=== PATIENT | female | born 1965 | race Caucasian/White ===

== ENCOUNTER → 2017-10-10 | Outpatient (CLI) | payer OTHER | END | disposition home or self-care (01) | LOC: KCIC MAMMO 08:52 | DX: Z12.31 Encounter for screening mammogram for malignant neoplasm of breast (principal) | CPT/HCPCS: 77067 ==

== ENCOUNTER → 2019-01-29 | Outpatient (CLI) | payer OTHER ==
[2015-12-25 16:00] VITALS: BP 132/68
[~2019-01-29] MED LIST: CYCL10TA2 PO; DICL50TA4 PO; HYDR-2678 PO; TRAM50TA PO
--- NOTE | 2019-01-29 17:54 | KCIC ---
MR of the left knee HISTORY: Left knee pain. Medial joint pain. Positive Jorden's. TECHNIQUE: Routine multiplanar sequences are obtained. Note that due to size, the larger flex coil had to be used. FINDINGS: Signal within the posterior horn the medial meniscus violating the inferior surface, compatible with a small tear. Severe degenerative tear of the lateral meniscus. Anterior and posterior cruciate ligaments are intact. Medial collateral ligament intact. Iliotibial band unremarkable. Fibular collateral ligament, biceps femoris tendon and popliteus tendon are intact. The extensor mechanism is intact. Small joint effusion. Severe cartilage loss at the medial joint compartment with subchondral bone exposure. Milder degenerative changes at the lateral and patellofemoral joint compartments. There is no evidence of aggressive bone destruction. No acute fracture. Trace Mast's cyst. Mild anterior subcutaneous edema. Question tiny loose body at the posterior medial joint of the knee. IMPRESSION: 1. Medial meniscal tear. 2. Extensive lateral meniscal tear. 3. Primary osteoarthritis, particularly severe at the lateral compartment. Possible tiny posterior loose body. Electronically signed by: Diego Schafer MD (01/29/2019 5:51 PM) [facility]
== END | disposition home or self-care (01) ==
LOC: KCIC MRI 14:23
PROVIDERS: ATTEND Orthopaedic Surgery
DX: S83.282A Other tear of lateral meniscus, current injury, left knee, initial encounter (principal); S83.242A Other tear of medial meniscus, current injury, left knee, initial encounter; M17.12 Unilateral primary osteoarthritis, left knee; M25.462 Effusion, left knee; M71.22 Synovial cyst of popliteal space [Baker], left knee; X58.XXXA Exposure to other specified factors, initial encounter; Y93.89 Activity, other specified; Y92.89 Other specified places as the place of occurrence of the external cause; Y99.8 Other external cause status
CPT/HCPCS: 73721

== ENCOUNTER 2019-03-31 09:54 | Day surgery (SDC) | payer OTHER ==
[~2019-03-31] VITALS: Ht 157.5 cm; Wt 144.2 kg
[~2019-03-31 09:54] MED LIST changes: +HYDROmorphone 2 MG/ML VIAL IV PRN; +IV RINGERS,LACTATED 1000ML 1,000 ML IV SCH; +MORPHINE SULFATE 2 MG/ML VIAL. IV PRN; +ONDANSETRON PF 4 MG/2 ML VIAL. IV PRN; +PROCHLORPERAZINE 10 MG/2 ML VIAL. IV PRN; +ceFAZolin SODIUM 3 GM in IV DEXTROSE 5% 100ML 100 ML IV PRN; +fentaNYL PF VIAL 100 MCG/2 ML VIAL IV PRN
[2019-03-31] MEDS ORDERED: LISI-334 PO (10:20)
[2019-03-31] MEDS ORDERED: MELO15TA23 PO (10:20)
[2019-03-31] MEDS ORDERED: ATOR20TA PO (10:20)
[2019-03-31] MEDS ORDERED: BUPIVACAINE MPF 0.5% 30 ML VIAL. ONE ×2 (11:52→12:37)
[2019-03-31] MEDS ORDERED: BUPIVAC MPF-EPI 0.5%-1:200000 30 ML VIAL. ONE (12:09)
[2019-03-31] MEDS ORDERED: PROPOFOL 20 ML IV ONE (13:27)
[2019-03-31] MEDS ORDERED: fentaNYL PF VIAL 100 MCG/2 ML VIAL ONE (13:27)
[2019-03-31] MEDS ORDERED: ONDANSETRON PF 4 MG/2 ML VIAL. ONE (13:27)
[2019-03-31] MEDS ORDERED: LIDOCAINE 2% PF 5 ML VIAL. ONE (13:27)
[2019-03-31] MEDS ORDERED: DEXAMETHASONE SOD PHOS 4 MG/ML VIAL ONE (13:27)
[2019-03-31] MEDS ORDERED: HYDR-3165 PO (13:30)
[2019-03-31] MEDS ORDERED: MIDAZOLAM HCL/PF 2 MG/2 ML VIAL. ONE (13:36)
[2019-03-31] MEDS ORDERED: KETOROLAC 30 MG/ML INJ FOR OR. INJ ONE (13:59)
[2019-03-31] MEDS ORDERED: SEVOFLURANE 31 TO 60 MINUTES. IH ONE (14:00)
--- NOTE | 2019-03-31 14:06 | DISCH ---
DISCHARGE INSTRUCTIONS Condition on Discharge Condition on Discharge: Stable Activity After Discharge Activity Instructions for Disc: Other, see below (may increase activities s lowly as tolerated) Weight Bearing Status after Di: As tolerated Diet after Discharge Diet after Discharge: Diabetic No Calorie Level Wound Incision Care Wound/Incision Care: Change dressing (remove dressing in 2 days may then shower no soaking until sutures removed) Contacting the after DC Call your doctor for: Concerns you may have Follow-Up Follow up with: Dr. Ascencio 1 week DONALD ASCENCIO MD Mar 31, 2019 14:06
[2019-03-31] MEDS ORDERED: HYDROcodone/APAP 7.5/325MG 1 TAB TABLET PO ONE (14:15)
[2019-03-31 14:36] VITALS: BP 105/45
--- NOTE | 2019-03-31 15:41 | PDOC4 ---
Operative Note Operative Note Date of surgery: 03/31/2019 Preoperative diagnosis: Medial and lateral meniscal tears left knee Postoperative diagnosis: Same Operative procedure: Left knee arthroscopy partial medial and lateral meniscectomies Surgeon: Sonu Anesthesia: Gen. Estimated blood loss: 5 mL Complications: None Operative indications: Please see my preoperative clinic note for detailed operative indications and indicates that patient is a 53-year-old female with pain swelling and mechanical symptoms of the left knee particularly with twisting pivoting type activities and MRI confirmed clinical suspicion of an ischial tears. I had gone over with her possibility of operative and ongoing nonoperative treatments the rationale for operative treatment of the meniscal tear reviewing the structure and function with her the possibility of continued pain particularly because I cannot undo any degenerative type issues along with the knee arthroscopy but only the mechanical-type issues associated with the meniscus tear or loose bodies etc. all her questions were answered she wishes to proceed with surgical evaluation and treatment. Operative text: Patient was identified procedure verified patient placed in the supine position on the operating table. After adequate amounts of general anesthesia were administered the left lower extremity was prepped and draped in standard sterile fashion with a thigh tourniquet. After timeout was performed patient procedure identified and verified, the left lower extremity was exsanguinated by Esmarch bandage tourniquet inflated to 350 mmHg a lateral portal was established a medial portal established using spinal needle localization and the knee joint was systematically examined. She did have some grade 2-3 chondromalacia of the patellofemoral joint but no instability and good tracking was noted. Likewise had some grade 2-3 chondromalacia in the medial compartment of the knee and a displaceable tear posterior horn of medial meniscus which was trimmed back to stable tissue using arthroscopic punch and shaver. ACL was probed and found to be intact she had multiple loose cart ilaginous bodies in both the medial and lateral compartment which were evacuated with arthroscopic shaver and she had complex tearing throughout the body posterior and anterior horns of the lateral meniscus which were trimmed back to stable tissue with the arthroscopic punch and shaver. All cartilage fragments were removed with arthroscopic shaver the knee was again toured to ensure no loose bodies remained and was then drained of arthroscopic fluid portals closed with nylon suture injection of the portal in fat pad area with 30 mL of half percent plain Marcaine sterile dressings were applied toes were noted be warm pink find deflation of tourniquet patient was returned recovery room in stable condition having tolerated procedure well DONALD BAGLEY MD Mar 31, 2019 15:41
== END 2019-03-31 15:15 | disposition home or self-care (01) ==
LOC: SURG 09:54
PROVIDERS: ATTEND Orthopaedic Surgery
DX: S83.282A Other tear of lateral meniscus, current injury, left knee, initial encounter (principal); S83.242A Other tear of medial meniscus, current injury, left knee, initial encounter; M94.262 Chondromalacia, left knee; E11.9 Type 2 diabetes mellitus without complications; I10 Essential (primary) hypertension; Z90.49 Acquired absence of other specified parts of digestive tract; Z98.890 Other specified postprocedural states; Z88.1 Allergy status to other antibiotic agents; Z79.84 Long term (current) use of oral hypoglycemic drugs; Z79.899 Other long term (current) drug therapy; X58.XXXA Exposure to other specified factors, initial encounter; Y93.89 Activity, other specified; Y92.89 Other specified places as the place of occurrence of the external cause; Y99.8 Other external cause status
CPT/HCPCS: 29880; 82962; A7015; C1782; J1100; J1885; J2001; J2250; J2405; J2704; J3010; J3490

== ENCOUNTER → 2019-07-09 | Outpatient (CLI) | payer OTHER ==
[~2019-07-09] MED LIST changes: +ATOR20TA PO; +HYDR-3165 PO; -HYDROmorphone 2 MG/ML VIAL IV PRN; -IV RINGERS,LACTATED 1000ML 1,000 ML IV SCH; +LISI-334 PO; +MELO15TA23 PO; -MORPHINE SULFATE 2 MG/ML VIAL. IV PRN; -ONDANSETRON PF 4 MG/2 ML VIAL. IV PRN; -PROCHLORPERAZINE 10 MG/2 ML VIAL. IV PRN; -ceFAZolin SODIUM 3 GM in IV DEXTROSE 5% 100ML 100 ML IV PRN; -fentaNYL PF VIAL 100 MCG/2 ML VIAL IV PRN
--- NOTE | 2019-07-09 15:27 | KCIC ---
Bone densitometry 07/09/2019 1:30 PM Indication: Screening exam Comparison Study: None available. Discussion: Bone Densitometry was performed with dual photon absorption of the lumbar spine and proximal left hip Lumbar Spine: Bone average density is 0.928g/cm2 for L1-L4. T-Score is -1.1. Left proximal femur:: Bone average density is 0.853g/cm2. T-Score is -0.7. IMPRESSION: Osteopenia. Note: Definitions established by the World Health Organization: Normal: T-score is -1.0 or above. Osteopenia: T-score is between -1.0 and -2.5. Osteoporosis: T-score is -2.5 or below. Electronically signed by: Dax Valencia MD (07/09/2019 3:24 PM) [id number]
--- NOTE | 2019-07-11 08:27 | KCIC ---
BILATERAL SCREENING MAMMOGRAM History: Routine screening. Comparison: Bilateral mammogram October 10, 2017. Technique: Routine bilateral digital mammogram views were obtained. Findings: Breast Tissue Density B : There are scattered areas of fibroglandular density. There are no dominant masses, suspicious microcalcifications, or architectural distortion. IMPRESSION: No mammographic evidence of malignancy. Recommend routine screening. BI-RADS category 1: Negative. The images were reviewed with computer aided detection. Patient information is entered into the reminder system with a target due date for the next screening mammogram. Mammography is the most sensitive method for finding small breast cancers, but it does not detect them all and is not a substitute for careful clinical examination. A negative mammogram does not negate a clinically suspicious finding and should not result in delay in biopsying a clinically suspicious abnormality. "Our facility is accredited by the [employer] Mammography Program." Electronically signed by: Sarath Lal MD (07/11/2019 8:24 AM) [facility]
== END | disposition home or self-care (01) ==
LOC: KCIC DEXA 13:26
PROVIDERS: ATTEND Nurse Practitioner Family
DX: Z12.31 Encounter for screening mammogram for malignant neoplasm of breast (principal); M85.88 Other specified disorders of bone density and structure, other site
CPT/HCPCS: 77067; 77080

== ENCOUNTER 2019-09-26 13:26 | Emergency (ER) | payer OTHER ==
[~2019-09-26] VITALS: Ht 154.9 cm; Wt 145.6 kg
--- NOTE | 2019-09-26 13:43 | PHYS DOC ---
Past Medical History Past Medical History: Diabetes-Type II, High Cholesterol, Hypertension, Other Additional Past Medical Histor: chronic back pain. (CODEY HARVEY APRN) Past Surgical History: Cholecystectomy, (CODEY HARVEY APRN) Alcohol Use: None Drug Use: None (CODEY HARVEY APRN) Adult General Chief Complaint Chief Complaint: VAGINAL BLEEDING [facility] HPI Patient is a 54 year old female who presents with vaginal bleeding this her last night. Patient states she was having some vaginal spotting last night. The patient states when she woke up today she was having more heavy vaginal bleeding, that did slow down and turn into vaginal spotting. She states that since September 10 she's been feeling off and having a loss of appetite. She's b een eating but not as much as she has a past. Denies any pain at this time. (CODEY HARVEY APRN) Review of Systems Review of Systems Constitutional: Denies fever or chills [] Eyes: Denies change in visual acuity, redness, or eye pain [] HENT: Denies nasal congestion or sore throat [] Respiratory: Denies cough or shortness of breath [] Cardiovascular: No additional information not addressed in HPI [] GI: Denies abdominal pain, nausea, vomiting, bloody stools or diarrhea [] : Reports vaginal bleeding. Denies dysuria or hematuria [] Musculoskeletal: Denies back pain or joint pain [] Integument: Denies rash or skin lesions [] Neurologic: Denies headache, focal weakness or sensory changes [] Endocrine: Denies polyuria or polydipsia [] Complete systems were reviewed and found to be within normal limits, except as documented in this note. (CODEY HARVEY APRN) Allergies Allergies Allergies Coded Allergies Type Severity Reaction Last Updated Verified Sulfa (Sulfonamide Antibiotics) Allergy Intermediate Hives 09/29/19 Yes (CODEY BOBO DO) Physical Exam Physical Exam Constitutional: Well developed, well nourished, no acute distress, non-toxic appearance. [] HENT: Normocephalic, atraumatic, bilateral external ears normal, oropharynx moist, no oral exudates, nose normal. [] Eyes: PERRLA, EOMI, conjunctiva normal, no discharge. [] Lungs & Thorax: Bilateral breath sounds clear to auscultation [] Abdomen: Bowel sounds normal, soft, no tenderness, no masses, no pulsatile ma sses. [] Skin: Warm, dry, no erythema, no rash. [] Neurologic: Alert and oriented X 3, normal motor function, normal sensory function, no focal deficits noted. [] Psychologic: Affect normal, judgement normal, mood normal. [] (CODEY HARVEY APRN) Current Patient Data Vital Signs Vital Signs Date Time Temp Pulse Resp B/P (MAP) Pulse Ox O2 Delivery O2 Flow Rate FiO2 09/26/19 16:25 67 16 102/57 (72) 97 Room Air 09/26/19 13:35 97.9 97.9 (BOBO,CODEY R DO) Lab Values Laboratory Tests Test 09/26/19 13:50 White Blood Count 8.3 x10^3/uL (4.0-11.0) Red Blood Count 4.33 x10^6/uL (3.50-5.40) Hemoglobin 12.2 g/dL (12.0-15.5) Hematocrit 37.9 % (36.0-47.0) Mean Corpuscular Volume 88 fL (79-100) Mean Corpuscular Hemoglobin 28 pg (25-35) Mean Corpuscular Hemoglobin Concent 32 g/dL (31-37) Red Cell Distribution Width 15.1 % (11.5-14.5) H Platelet Count 229 x10^3/uL (140-400) Neutrophils (%) (Auto) 37 % (31-73) Lymphocytes (%) (Auto) 54 % (24-48) H Monocytes (%) (Auto) 7 % (0-9) Eosinophils (%) (Auto) 1 % (0-3) Basophils (%) (Auto) 1 % (0-3) Neutrophils # (Auto) 3.1 x10^3/uL (1.8-7.7) Lymphocytes # (Auto) 4.5 x10^3/uL (1.0-4.8) Monocytes # (Auto) 0.6 x10^3/uL (0.0-1.1) Eosinophils # (Auto) 0.1 x10^3/uL (0.0-0.7) Basophils # (Auto) 0.0 x10^3/uL (0.0-0.2) Prothrombin Time 12.8 SEC (11.7-14.0) Prothrombin Time INR 1.0 (0.8-1.1) Activated Partial Thromboplast Time 29 SEC (24-38) Sodium Level 140 mmol/L (136-145) Potassium Level 4.3 mmol/L (3.5-5.1) Chloride Level 106 mmol/L (98-107) Carbon Dioxide Level 27 mmol/L (21-32) Anion Gap 7 (6-14) Blood Urea Nitrogen 15 mg/dL (7-20) Creatinine 1.1 mg/dL (0.6-1.0) H Estimated GFR (Cockcroft-Gault) 51.8 BUN/Creatinine Ratio 14 (6-20) Glucose Level 91 mg/dL (70-99) Calcium Level 8.3 mg/dL (8.5-10.1) L Total Bilirubin 0.3 mg/dL (0.2-1.0) Aspartate Amino Transferase (AST) 30 U/L (15-37) Alanine Aminotransferase (ALT) 46 U/L (14-59) Alkaline Phosphatase 108 U/L (46-116) Total Protein 6.6 g/dL (6.4-8.2) Albumin 2.9 g/dL (3.4-5.0) L Albumin/Globulin Ratio 0.8 (1.0-1.7) L Laboratory Tests 09/26/19 13:50 Laboratory Tests 09/26/19 13:50 (CODEY BOBO DO) Lab Values Laboratory Tests Test 09/26/19 13:50 White Blood Count 8.3 x10^3/uL (4.0-11.0) Red Blood Count 4.33 x10^6/uL (3.50-5.40) Hemoglobin 12.2 g/dL (12.0-15.5) Hematocrit 37.9 % (36.0-47.0) Mean Corpuscular Volume 88 fL (79-100) Mean Corpuscular Hemoglobin 28 pg (25-35) Mean Corpuscular Hemoglobin Concent 32 g/dL (31-37) Red Cell Distribution Width 15.1 % (11.5-14.5) H Platelet Count 229 x10^3/uL (140-400) Neutrophils (%) (Auto) 37 % (31-73) Lymphocytes (%) (Auto) 54 % (24-48) H Monocytes (%) (Auto) 7 % (0-9) Eosinophils (%) (Auto) 1 % (0-3) Basophils (%) (Auto) 1 % (0-3) Neutrophils # (Auto) 3.1 x10^3/uL (1.8-7.7) Lymphocytes # (Auto) 4.5 x10^3/uL (1.0-4.8) Monocytes # (Auto) 0.6 x10^3/uL (0.0-1.1) Eosinophils # (Auto) 0.1 x10^3/uL (0.0-0.7) Basophils # (Auto) 0.0 x10^3/uL (0.0-0.2) Prothrombin Time 12.8 SEC (11.7-14.0) Prothrombin Time INR 1.0 (0.8-1.1) Activated Partial Thromboplast Time 29 SEC (24-38) Sodium Level 140 mmol/L (136-145) Potassium Level 4.3 mmol/L (3.5-5.1) Chloride Level 106 mmol/L (98-107) Carbon Dioxide Level 27 mmol/L (21-32) Anion Gap 7 (6-14) Blood Urea Nitrogen 15 mg/dL (7-20) Creatinine 1.1 mg/dL (0.6-1.0) H Estimated GFR (Cockcroft-Gault) 51.8 BUN/Creatinine Ratio 14 (6-20) Glucose Level 91 mg/dL (70-99) Calcium Level 8.3 mg/dL (8.5-10.1) L Total Bilirubin 0.3 mg/dL (0.2-1.0) Aspartate Amino Transferase (AST) 30 U/L (15-37) Alanine Aminotransferase (ALT) 46 U/L (14-59) Alkaline Phosphatase 108 U/L (46-116) Total Protein 6.6 g/dL (6.4-8.2) Albumin 2.9 g/dL (3.4-5.0) L Albumin/Globulin Ratio 0.8 (1.0-1.7) L Laboratory Tests 09/26/19 13:50 Laboratory Tests 09/26/19 13:50 (CODEY HARVEY APRN) EKG EKG [] (CODEY HARVEY APRN) Radiology/Procedures Radiology/Procedures [facility] [address] [place] [address] IMAGING REPORT Signed PATIENT: RAJANI VIDALES ACCOUNT: [id number] : 1965 LOCATION: ER AGE: 54 SEX: F EXAM STATUS: REG ER ORD. PHYSICIAN: CODEY HARVEY APRN REASON: Post Menopausal Bleeding; Heavy vaginal bleeding PROCEDURE: PELVIS W/TV EXAM: Pelvic sonogram. HISTORY: Postmenopausal bleeding. TECHNIQUE: Transabdominal and transvaginal sonographic imaging of the pelvis was performed. COMPARISON: None. FINDINGS: The exam is limited due to body habitus. The uterus measures 8.0 x 3.8 x 3.4 cm. The endometrial stripe measures 10 mm in maximum thickness. The ovaries are obscured. There is no pelvic free fluid. There is a nabothian cyst within the cervix measuring 8 mm. IMPRESSION: 1. Limited exam due to body habitus. The ovaries are not seen. 2. Thickened endometrial stripe for the reported postmenopausal status the patient, measuring 10 mm. In the setting of postmenopausal bleeding, tissue sampling is recommended. Electronically signed by: Nancy Moura MD (09/26/2019 3:52 PM) [facility] DICTATED and SIGNED BY: NANCY MOURA MD DATE: 09/26/19 1552 (CODEY HARVEY APRN) Course & Med Decision Making Course & Med Decision Making Pertinent Labs and Imaging studies reviewed. (See chart for details) Will get labs, ultrasound Labs are unremarkable. Ultrasound shows: IMPRESSION: 1. Limited exam due to body habitus. The ovaries are not seen. 2. Thickened endometrial stripe for the reported postmenopausal status the patient, measuring 10 mm. In the setting of postmenopausal bleeding, tissue sampling is recommended. Electronically signed by: Nancy Moura MD (09/26/2019 3:52 PM) [facility] Will have follow up with OB for further workup. (CODEY HARVEY APRN) Dragon Disclaimer Dragon Disclaimer This electronic medical record was generated, in whole or in part, using a voice recognition dictation system. (CODEY HARVEY APRN) Departure Departure Impression: Primary Impression: Vaginal bleeding Disposition: 01 HOME, SELF-CARE Condition: STABLE Referrals: [facility] [employer] [employer] (PCP) CHIP CHAMBERS MD Additional Instructions: Thank you for visiting [facility]. We appreciate you trusting us with your care. If any additional problems come up don't hesitate to return to visit us. Please follow up with your primary care provider so they can plan additional care if needed and know about the problem that you had. If symptoms worsen come back to the Emergency Department. Any concerning symptoms that start such as chest pain, shortness of air, weakness or numbness on one side of the body, running high fevers or any other concerning symptoms return to the ER. Please follow up with OB as soon as you can. Attending Signature Attending Signature I have reviewed the PA/[employer]'s note and plan of care. I was available for consultation as needed during the patient's visit in the emergency department. I agree with the clinical impression, plan, and disposition. (CODEY BOBO DO) CODEY HARVEY APRN Sep 26, 2019 13:43 CODEY BOBO DO Sep 30, 2019 19:01
[2019-09-26 14:07] LABS: BASO % 1 % (0-3); EOS # 0.1 x10^3/uL (0.0-0.7); EOS % 1 % (0-3); HEMATOCRIT 37.9 % (36.0-47.0); HEMOGLOBIN 12.2 g/dL (12.0-15.5); LYMPH # 4.5 x10^3/uL (1.0-4.8); LYMPH % 54 % (24-48); MEAN CORPUSCULAR HEMOGLOBIN 28 pg (25-35); MEAN CORPUSCULAR HGB CONC 32 g/dL (31-37); MEAN CORPUSCULAR VOLUME 88 fL (79-100); MONO # 0.6 x10^3/uL (0.0-1.1); MONO % 7 % (0-9); NEUT # 3.1 x10^3/uL (1.8-7.7); NEUT % 37 % (31-73); PLATELET COUNT 229 x10^3/uL (140-400); RED BLOOD COUNT 4.33 x10^6/uL (3.50-5.40); RED CELL DISTRIBUTION WIDTH 15.1 % (11.5-14.5); WHITE BLOOD COUNT 8.3 x10^3/uL (4.0-11.0)
[2019-09-26 14:17] LABS: CALCIUM 8.3 mg/dL (8.5-10.1); CREATININE 1.1 mg/dL (0.6-1.0); GFR 51.8; POTASSIUM 4.3 mmol/L (3.5-5.1)
[2019-09-26 14:23] LABS: ALBUMIN 2.9 g/dL (3.4-5.0); ALBUMIN/GLOBULIN RATIO 0.8 (1.0-1.7); TOTAL BILIRUBIN 0.3 mg/dL (0.2-1.0); TOTAL PROTEIN 6.6 g/dL (6.4-8.2)
[2019-09-26 14:36] LABS: PROTHROMBIN TIME PATIENT 12.8 SEC (11.7-14.0)
--- NOTE | 2019-09-26 15:54 | RAD ---
EXAM: Pelvic sonogram. HISTORY: Postmenopausal bleeding. TECHNIQUE: Transabdominal and transvaginal sonographic imaging of the pelvis was performed. COMPARISON: None. FINDINGS: The exam is limited due to body habitus. The uterus measures 8.0 x 3.8 x 3.4 cm. The endometrial stripe measures 10 mm in maximum thickness. The ovaries are obscured. There is no pelvic free fluid. There is a nabothian cyst within the cervix measuring 8 mm. IMPRESSION: 1. Limited exam due to body habitus. The ovaries are not seen. 2. Thickened endometrial stripe for the reported postmenopausal status the patient, measuring 10 mm. In the setting of postmenopausal bleeding, tissue sampling is recommended. Electronically signed by: Nancy Waggoner MD (09/26/2019 3:52 PM) [facility] [place]
[2019-09-26 16:25] VITALS: BP 102/57
== END 2019-09-26 16:27 | disposition home or self-care (01) ==
LOC: ER 13:26
DX: N93.9 Abnormal uterine and vaginal bleeding, unspecified (principal); E78.00 Pure hypercholesterolemia, unspecified; E11.9 Type 2 diabetes mellitus without complications; I10 Essential (primary) hypertension; G89.29 Other chronic pain; Z90.49 Acquired absence of other specified parts of digestive tract; Z88.2 Allergy status to sulfonamides
CPT/HCPCS: 36415; 76830; 76856; 80053; 85025; 85610; 85730; 99285-25

== ENCOUNTER 2019-10-23 05:53 | Day surgery (SDC) | payer OTHER ==
[~2019-10-23 05:53] MED LIST changes: +TRAM100T2 PO
[2019-10-23] MEDS ORDERED: INSULIN LISPRO 100 UNIT/ML 3ML VIAL for OP,RR ONLY. SQ PRN (06:45)
[2019-10-23] MEDS ORDERED: MORPHINE SULFATE 2 MG/ML VIAL. IV PRN (07:00)
[2019-10-23] MEDS ORDERED: PROCHLORPERAZINE 10 MG/2 ML VIAL. IV PRN (07:00)
[2019-10-23] MEDS ORDERED: HYDROmorphone 2 MG/ML VIAL IV PRN (07:00)
[2019-10-23] MEDS ORDERED: ONDANSETRON PF 4 MG/2 ML VIAL. IV PRN (07:00)
[2019-10-23] MEDS ORDERED: IV RINGERS,LACTATED 1000ML 1,000 ML IV SCH (07:00)
[2019-10-23] MEDS ORDERED: fentaNYL PF VIAL 100 MCG/2 ML VIAL IV PRN ×2 (07:00)
[2019-10-23 07:13] LABS: BASO % 1 % (0-3); EOS # 0.2 x10^3/uL (0.0-0.7); EOS % 2 % (0-3); HEMATOCRIT 39.5 % (36.0-47.0); HEMOGLOBIN 12.7 g/dL (12.0-15.5); LYMPH # 1.9 x10^3/uL (1.0-4.8); LYMPH % 28 % (24-48); MEAN CORPUSCULAR HEMOGLOBIN 29 pg (25-35); MEAN CORPUSCULAR HGB CONC 32 g/dL (31-37); MEAN CORPUSCULAR VOLUME 90 fL (79-100); MONO # 0.5 x10^3/uL (0.0-1.1); MONO % 7 % (0-9); NEUT # 4.3 x10^3/uL (1.8-7.7); NEUT % 63 % (31-73); PLATELET COUNT 171 x10^3/uL (140-400); RED BLOOD COUNT 4.39 x10^6/uL (3.50-5.40); RED CELL DISTRIBUTION WIDTH 15.7 % (11.5-14.5); WHITE BLOOD COUNT 6.9 x10^3/uL (4.0-11.0)
[2019-10-23] MEDS ORDERED: SUCCINYLCHOLINE 200 MG/10 ML VIAL. ONE (07:17)
[2019-10-23] MEDS ORDERED: fentaNYL PF VIAL 100 MCG/2 ML VIAL ONE (07:18)
[2019-10-23] MEDS ORDERED: LIDOCAINE 2% PF 5 ML VIAL. ONE (07:55)
[2019-10-23] MEDS ORDERED: PROPOFOL 20 ML IV ONE (07:55)
[2019-10-23] MEDS ORDERED: ONDANSETRON PF 4 MG/2 ML VIAL. ONE (07:55)
[2019-10-23] MEDS ORDERED: DEXAMETHASONE SOD PHOS 4 MG/ML VIAL ONE (07:55)
[2019-10-23] MEDS ORDERED: SEVOFLURANE 16 TO 30 MINUTES. IH ONE (07:58)
[2019-10-23] MEDS ORDERED: IBUP-1060 PO (08:12)
[2019-10-23] MEDS ORDERED: OXYC1TAB15 PO (08:12)
[2019-10-23] MEDS ORDERED: oxyCODONE/APAP 5/325 1 TAB TABLET PO ONE (08:30)
[2019-10-23 08:55] VITALS: BP 124/53
--- NOTE | 2019-10-23 09:00 | PDOC4 ---
OPERATIVE NOTE: PreOp Dx: PMB, endometrial thickness of 10mm, hyperlipidemia, HTN PostOp Dx: same Procedure: H/S, Myosure, D&C Surgeon: Oralia Wilson Anesthesia: GETA EBL: minimal Findings: endometrial polyp Complications: none: Path: Polyp and endometrial curettage CODEY WILSON MD Oct 23, 2019 09:00
--- NOTE | 2019-10-23 09:16 | OP ---
DATE OF SURGERY: 10/23/2019 PREOPERATIVE DIAGNOSES: 1. Postmenopausal bleeding. 2. Thickened endometrial stripe of 10 mm. 3. Stenotic cervical os. 4. Hyperlipidemia. 5. Hypertension. 6. Diabetes. POSTOPERATIVE DIAGNOSES: 1. Postmenopausal bleeding. 2. Thickened endometrial stripe of 10 mm. 3. Stenotic cervical os. 4. Hyperlipidemia. 5. Hypertension. 6. Diabetes. PROCEDURES: 1. Hysteroscopy. 2. Dilation and curettage. 3. MyoSure. SURGEON: Diego Wilson MD ANESTHESIA: General endotracheal intubation. ESTIMATED BLOOD LOSS: Minimal. FINDINGS: Normal appearing endometrium with endometrial polyp arising from the right endometrial wall. COMPLICATIONS: None. DESCRIPTION OF PROCEDURE: The patient was taken to the operating room where general endotracheal intubation was obtained without difficulty. The patient was prepped and draped in normal sterile fashion. A speculum was placed in the patient's vagina and the cervix was visualized. The anterior lip of the cervix was then grasped with a single tooth tenaculum. A sound was attempted to be passed, but the cervical os was too stenotic. At that point, the cervix was dilated to allow for the sound to be placed. The uterus sounded to 8 cm. At that point, the cervix was serially dilated to allow for the hysteroscope to be placed. Once the scope was placed into the cervix, the endometrium was observed. The endometrium appeared to be normal with the exception of one endometrial mass or polyp located in the right sidewall. At that point, the MyoSure device was then placed into the hysteroscope and the mass was removed. This was sent to Pathology. At that point, curettage was performed in all four quadrants. This specimen was then sent to Pathology as well. Once this was complete, the instruments were removed as well as the tenaculum. Minimal bleeding was noted at the tenaculum site. Good hemostasis was noted at that point. The patient tolerated the procedure well and was taken to the recovery room in stable condition. DIEGO WILSON MD DR: CORIE/roberto JOB#: [id number] / [id number] BANDAR
--- NOTE | 2019-10-26 15:07 | PATHOLOGY ---
[facility] Accession Number: [id number] . 01 Material submitted: . PART A: endometrium - POLYP - ENDOMETRIAL PART B: endometrium - ENDOMETRIAL CURETTINGS . 01 Clinical history: . PMB . 02 Diagnosis: A. Endometrial curettings, endometrial polyp: - Endometrial polyp. - Slightly disordered proliferative endometrium. . B. Endometrial curettings: - Segments of squamous mucosa, blood, and mucin containing few strips of endometrial and endocervical epithelium. . (JPM:natalia; 10/26/2019) QMS 10/26/2019 1402 Local . 02 Comment: There is no atypia or evidence of malignancy. . 02 Electronically signed: . Rivera Regalado MD, Pathologist NPI- [id number] . 01 Gross description: . A. The specimen is received in formalin, labeled "Tova Prince, polyp". The specimen is additionally labeled on the requisition as, "polyp-endometrial". Received are multiple segments of pale cooper soft tissue measuring 1.4 x 0.8 x 0.2 cm in aggregate dimensions. The specimen is filtered and entirely submitted in cassette A1. . B. The specimen is received in formalin, labeled "Tova Prince, endometrial curettings". Received are multiple segments of pale cooper membranous tissue admixed with mucoid material measuring 0.6 x 0.5 x 0.1 cm in aggregate dimensions. The specimen is filtered and entirely submitted in cassette B1. (CAA; 10/23/2019) QAC/QAC 10/23/2019 1729 Local . 02 Pathologist provided ICD-10: N84.0, N85.9 . 02 CPT . 577857, 790021 Specimen Comment: Report sent to Performed at: 01 [facility] [address], [place], [place] [id number] MD Delta Omalley MD Phone: [phone] Performed at: [address] [id number] MD Rivera Regalado MD Phone: [phone]
== END 2019-10-23 09:15 | disposition home or self-care (01) ==
LOC: SURG 05:53
PROVIDERS: ATTEND Obstetrics & Gynecology
DX: N88.2 Stricture and stenosis of cervix uteri (principal); N84.0 Polyp of corpus uteri; N95.0 Postmenopausal bleeding; I10 Essential (primary) hypertension; E78.5 Hyperlipidemia, unspecified; E11.9 Type 2 diabetes mellitus without complications; K21.9 Gastro-esophageal reflux disease without esophagitis; E66.9 Obesity, unspecified; M19.90 Unspecified osteoarthritis, unspecified site; Z90.49 Acquired absence of other specified parts of digestive tract; Z88.1 Allergy status to other antibiotic agents; Z79.899 Other long term (current) drug therapy; Z68.43 Body mass index [BMI] 50.0-59.9, adult; Z98.890 Other specified postprocedural states
CPT/HCPCS: 36415; 58558; 82962; 85025; 86850; 86900; 86901; 86920; J0330; J1100; J2001; J2405; J2704; J3010; A7015; J7030; J7120

== ENCOUNTER → 2021-02-24 | Outpatient (CLI) | payer OTHER ==
[~2021-02-24] MED LIST changes: +IBUP-1060 PO; -LISI-334 PO; +LISI20TA18 PO; +OXYC1TAB15 PO
--- NOTE | 2021-02-24 17:17 | KCIC ---
EXAM: Bilateral screening mammogram. HISTORY: 55-year-old female presents for screening mammography. TECHNIQUE: Full-field digital craniocaudal and mediolateral oblique views of both breasts are obtaine d for evaluation. Computer aided detection was applied. COMPARISON: 07/09/2019 BREAST PARENCHYMAL DENSITY: Level B - Scattered fibroglandular densities. FINDINGS: There is a small nodular density within the 3:00 position of the left breast at mid depth w ithout a correlate on prior studies. There are additional areas of asymmetry and nodularity which are stable in appearance. There is no suspicious calcification or architectural distortion. IMPRESSION: BI-RADS Category 0: Incomplete. Additional imaging needed. RECOMMENDATION: Further evaluation with a full field true lateral view and spot compression views of the left breast to assess nodularity at the 3:00 position is recommended. Sonographic imaging can als o be performed if deemed indicated based on additional mammographic findings. If your mammogram demonstrates that you have dense breast tissue, which could hide abnormalities, and if you have other risk factors for breast cancer that have been identified, you might benefit from s upplemental screening tests that may be suggested by your ordering physician. Dense breast tissue, i n and of itself, is a relatively common condition. This information is not provided to cause undue c oncern, but rather to raise your awareness and to promote discussion with your physician regarding th e presence of other risk factors, in addition to dense breast tissue. A report of your mammography re sults will be sent to you and your physician. You should contact your physician if you have any ques tions or concerns regarding this report. Mammography is a sensitive method for finding small breast cancers, but it does not detect them all a nd is not a substitute for careful clinical examination. A negative mammogram does not negate a clin ically suspicious finding and should not result in delay in biopsying a clinically suspicious abnorma lity. PQRS compliance statement - Patient information was entered into a reminder system with a target due date for the next mammogram. "Our facility is accredited by the [employer] Mammography Program." Electronically signed by: Nancy Waggoner MD (02/24/2021 5:15 PM) [id number]
== END ==
LOC: KCIC MAMMO 15:03
PROVIDERS: ATTEND Nurse Practitioner Gerontology
DX: Z12.31 Encounter for screening mammogram for malignant neoplasm of breast (principal)
CPT/HCPCS: 77067

== ENCOUNTER → 2021-04-20 | Outpatient (CLI) | payer OTHER ==
--- NOTE | 2021-04-20 10:25 | KCIC ---
EXAM: Left breast diagnostic mammogram; left breast sonogram. HISTORY: 55-year-old female presents for evaluation of nodularity within the left breast demonstrate on a screening mammogram dated 2020. TECHNIQUE: Full-field digital true lateral and spot compression craniocaudal and mediolateral oblique views of the left breast are obtained. Sonographic imaging of the left breast targeted to the site o f nodular was also performed. COMPARISON: Mammograms dated 02/24/2021, 07/09/2019, 09/30/2017, 02/16/2015. BREAST PARENCHYMAL DENSITY: Level B - Scattered fibroglandular densities. FINDINGS: There is a persistent nodular density within the 3:00 position of the right breast centered approximately 12 cm from the nipple with additional mammographic views. There is a single round micr ocalcification in this location. There is no convincing architectural distortion. There is no convinc ing correlate for this finding on prior studies. Sonographic imaging of the right breast demonstrates an oval hypoechoic nodule at the 3:00 position 1 2 cm the nipple measuring 6 mm in maximum dimension. This demonstrates no convincing internal blood f low, architectural distortion or posterior shadowing. The size location of this lesion corresponds wi th the location of the mammographic nodule of concern. No additional lesion is seen. IMPRESSION: 1. Persistent nodular density within the 3:00 position of the left breast approximately 12 cm from th e nipple with additional mammographic images. There is a 6 mm hypoechoic lesion demonstrated sonograp hically in this location which may correspond with the mammographic finding of concern. The sonograph ic appearance favors benignity. However, the mammographic appearance is likely benign. Therefore, bio psy is recommended for definitive diagnosis. 2. BI-RADS Category 4: Suspicious abnormality. Sonographic guided biopsy of the aforementioned 6 mm l esion at the 3:00 position of the left breast 12 cm the nipple is recommended. If the biopsy clip cherelle mandy at the time of sonographic guided biopsy does not correspond with the mammographic finding of con cern on postbiopsy mammographic images, stereotactic guided biopsy of the mammographic lesion of conc jani is recommended. These findings and recommendations were discussed with the patient and were communicated to the refer [facility] physician office at 930 hours on 04/20/2021. If your mammogram demonstrates that you have dense breast tissue, which could hide abnormalities, and if you have other risk factors for breast cancer that have been identified, you might benefit from s upplemental screening tests that may be suggested by your ordering physician. Dense breast tissue, i n and of itself, is a relatively common condition. This information is not provided to cause undue c oncern, but rather to raise your awareness and to promote discussion with your physician regarding th e presence of other risk factors, in addition to dense breast tissue. A report of your mammography re sults will be sent to you and your physician. You should contact your physician if you have any ques tions or concerns regarding this report. Mammography is a sensitive method for finding small breast cancers, but it does not detect them all a nd is not a substitute for careful clinical examination. A negative mammogram does not negate a clin ically suspicious finding and should not result in delay in biopsying a clinically suspicious abnorma lity. PQRS compliance statement - Patient information was entered into a reminder system with a target due date for the next mammogram. "Our facility is accredited by the [employer] Mammography Program." Electronically signed by: Nancy Waggoner MD (04/20/2021 10:23 AM) [facility]
== END ==
LOC: KCIC MAMMO 08:04
PROVIDERS: ATTEND Nurse Practitioner Gerontology
DX: R92.8 Other abnormal and inconclusive findings on diagnostic imaging of breast (principal); R92.2 Inconclusive mammogram
CPT/HCPCS: 76641; 77065

== ENCOUNTER → 2021-05-15 | Outpatient (CLI) | payer OTHER ==
--- NOTE | 2021-05-15 14:08 | RAD ---
EXAM: Sonographic guided left breast biopsy; left breast biopsy clip placement; left breast postbiops y mammogram. HISTORY: 55-year-old female presents for sonographic guided biopsy of a lesion within the left breast demonstrated on a sonogram performed 04/20/2021. This may correlate with nodularity of concern demons trated on a mammogram performed on the same date. TECHNIQUE: The risks of the procedure were discussed with the patient and written and verbal consent was obtained. A timeout was performed. Sonographic imaging of the left breast was performed and the l esion of concern at the 3:00 position 12 cm from the nipple was identified. The skin in this location was sterilely prepped, draped and infiltrated with 1 percent lidocaine. Multiple core samples were o btained through the lesion of concern with sonographic guidance. A biopsy clip was advanced into the biopsy bed. A sterile bandage was placed. A post biopsy mammogram demonstrates the biopsy clip superi or and lateral to the nodular density of concern demonstrated mammographically. Therefore, the sonogr aphic lesion is separate from the mammographic lesion. The patient tolerated the procedure without co mplication and was discharged in stable condition. IMPRESSION: 1. Sonographic and biopsy of a small hypoechoic lesion at the 3:00 position 12 cm from the nipple and post biopsy clip placement. No residual lesion is seen within the biopsy bed following biopsy, favor ing a benign cystic etiology. An addendum to this report will be submitted when pathology results are available. 2. Note is made that the sonographic target lesion is separate from the lesion demonstrated mammograp hically at the 3:00 position 12 cm from the nipple. This mammographic lesion is sonographically occul t and remains indeterminant. Stereotactic guided biopsy is recommended for definitive diagnosis. 3. BI-RADS Category 4: Suspicious abnormality. Biopsy is recommended. These findings and recommendati ons were discussed with Candie in the ordering surgeon office at 1400 hours on 05/15/2021. Electronically signed by: Nancy Waggoner MD (05/15/2021 2:06 PM) [id number]
--- NOTE | 2021-05-16 17:07 | PATHOLOGY ---
[facility] Accession Number: [id number] . 01 Material submitted: . breast - LEFT BREAST MASS 3 O'CLOCK 12 CMFN 6MM. Modifiers: left, 3:00, 12CMFN . 01 Clinical history: . ABNORMAL MAMMO . 02 Diagnosis: Breast tissue, left breast mass 3:00 12 cm from nipple needle biopsy: - Small focus of stromal fibrosis, duct ectasia/cystic change, and apocrine metaplasia. (JPM:neptali; 05/16/2021) MBR 05/16/2021 1653 Local . 02 Comment: Sections of the left breast mass at 3:00 needle biopsy reveal predominantly fatty breast tissue showing focal recent hemorrhage. One of the biopsy segments shows a small focus of stromal fibrosis, duct ectasia/cystic change, and apocrine metaplasia. There is no atypia or evidence of malignancy. (JPM:grubber; 05/16/2021) . 02 Electronically signed: . Rivera Regalado MD, Pathologist NPI- [id number] . 01 Gross description: . The specimen is received in formalin, labeled "Tova Morrison, left breast 3:00, 12 cm FN". Received are 4 needle cores of fibrofatty tissue measuring 1.8 x 0.8 x 0.2 cm in aggregate dimensions. The specimen is submitted entirely in cassettes A1-A3. The specimen is collected at 1315 and placed into formalin at 1316 on 05/15/21. The specimen is removed from formalin at 2150 on 05/15/21. The total formalin fixation time is 8 hours and 35 minutes. ([facility]; 05/15/2021) NRI/NRI 05/15/2021 1727 Local . 02 Pathologist provided ICD-10: N60.32, N60.42, N60.82 . 02 CPT . 291382 Specimen Comment: A courtesy copy of this report has been sent to [phone], [phone] Specimen Comment: [id number], Specimen Comment: Report sent to , DR MATA / DR SERRANO Performed at: 01 [facility] [place] [address] [place] [address] [address], [place] [id number] MD Ab Multani MD Phone: [phone] Performed at: 02 [facility] [address] [place], [place] [id number] MD Rivera Regalado MD Phone: [phone]
== END ==
LOC: US 12:21
PROVIDERS: ATTEND Surgery
DX: N63.25 Unspecified lump in the left breast, overlapping quadrants (principal); N60.32 Fibrosclerosis of left breast; N60.42 Mammary duct ectasia of left breast; N60.82 Other benign mammary dysplasias of left breast
CPT/HCPCS: 19083; 77065; 88305; A4648

== ENCOUNTER → 2021-05-17 | Outpatient (CLI) | payer OTHER ==
[~2021-05-17] MED LIST changes: +LIDOCAINE 1% Multi-Dose 20 ML VIAL. INJ ONE; +LIDOCAINE 2%/EPI 1:100,000 20 ML VIAL. INJ ONE
--- NOTE | 2021-05-17 15:28 | RAD ---
EXAM: Stereotactic left breast biopsy; specimen radiograph; post-biopsy clip placement; unilateral po st-biopsy mammogram. HISTORY: 55-year-old female presents for biopsy of a nodule without convincing sonographic correlate within the lateral left breast demonstrated on prior diagnostic mammograms. TECHNIQUE AND FINDINGS: The procedure and its risks and benefits were discussed with the patient. Ris ks discussed included, but were not limited to, pain, infection, bleeding and need for repeat biopsy. The patient provided verbal and written consent. A timeout was performed. The left breast was placed in craniocaudal projection and stereotactic images were obtained. The lesi on of concern was identified. The skin overlying this region was then sterilely prepped and infiltrat ed with a few cc 1% lidocaine for local anesthesia. Deeper soft tissue anesthesia was administered wi th epinephrine in 1% lidocaine. A small skin incision was made and the biopsy device was advanced and appropriate positioning was confirmed with additional images. Subsequently, multiple core biopsy samples were obtained with vacuum assistance. A plain radiograph o f the specimen was obtained, demonstrating inclusion of the lesion of interest, including microcalcif ication associated with the lesion. Then, a post-biospy clip was advanced to the site of biopsy using the same guidance technique. A sterile bandage was placed, and the patient was transferred to the ammography suite for craniocaudal and mediolateral oblique views. The post-biopsy mammogram was obtained and interpreted a separate workstation. This demonstrates imme diate post-biospy changes and a biopsy clip in expected position. The patient tolerated the procedure without difficulty and was discharged to home in stable condition with post-biospy care instructions . IMPRESSION: Successful stereotactic biospy of a nodule within the left breast and post-biopsy clip placement. An addendum to this report will be submitted when pathology results are available. Electronically signed by: Nancy Waggoner MD (05/17/2021 3:25 PM) [id number]
== END | disposition home or self-care (01) ==
LOC: MAMMO 14:02
PROVIDERS: ATTEND Surgery
DX: R92.8 Other abnormal and inconclusive findings on diagnostic imaging of breast (principal); I10 Essential (primary) hypertension; E78.00 Pure hypercholesterolemia, unspecified; K21.9 Gastro-esophageal reflux disease without esophagitis; M19.90 Unspecified osteoarthritis, unspecified site; E66.9 Obesity, unspecified; E11.9 Type 2 diabetes mellitus without complications; Z79.899 Other long term (current) drug therapy; Z98.890 Other specified postprocedural states; Z88.2 Allergy status to sulfonamides
CPT/HCPCS: 19081; 77065; J3490